=== PATIENT | male | born 2000 | race Hispanic/Latino ===

== ENCOUNTER 2022-06-27 08:52 | Emergency (ER) | payer OTHER ==
[2022-06-27] MEDS ORDERED: Acetaminophen 500 MG TAB ONE (09:23)
[2022-06-27 09:56] LABS: SARS-CoV-2 NAA Rapid Test Not Detected (NotDetected)
== END 2022-06-27 10:47 | disposition home or self-care (01) ==
LOC: ERS 08:52
DX: J11.1 Influenza due to unidentified influenza virus with other respiratory manifestations (principal); F17.210 Nicotine dependence, cigarettes, uncomplicated; Z20.822 Contact with and (suspected) exposure to COVID-19
CPT/HCPCS: 99283

== ENCOUNTER 2023-11-11 01:03 | Inpatient (IN) | payer OTHER ==
[2023-11-11 01:42] LABS: #Eosinphils 0.2 thou/uL (0.0-0.7); #Monocytes 0.5 thou/uL (0.11-0.59); #Neutrophils 2.7 thou/uL (1.40-6.50); %Basophils 0.2 % (0.0-1.0); %Lymphocytes 36.1 % (21.0-51.0); %Monocytes 9.9 % (0.0-10.0); %Neutrophils 50.2 % (42.0-75.0); Hematocrit 38.1 % (42.0-52.0); Hemoglobin 12.7 g/dL (14.0-18.0); Mean Corpuscular HGB CONC 33.3 g/dL (32.0-36.0); Mean Corpuscular Hemoglobin 29.3 pg (27.0-31.0); Mean Corpuscular Volume 87.8 fl (78.0-98.0); Mean Platelet Volume 9.7 fL (7.4-10.4); Platelet Count 228 10x3/uL (130-400); RBC Distribution Width 12.3 % (11.5-14.5); Red Blood Cell (RBC) Count 4.34 mill/uL (4.70-6.10); White Blood Cell (WBC) Count 5.4 10x3/uL (4.8-10.8)
[2023-11-11 02:03] LABS: ALT (SGPT) 28 U/L (8-55); AST (SGOT) 30 U/L (5-34); Acetaminophen Less than 10 mcg/mL (10.0-30.0); Albumin 3.2 g/dL (3.5-5.0); Alcohol Less than 10.0 mg/dL (Less than 10); Alkaline Phosphatase 59 U/L (40-110); Anion Gap 11 mmol/L (10-20); BUN (Urea Nitrogen) 25 mg/dL (8.9-20.6); Bilirubin, Total 0.2 mg/dL (0.2-1.2); Calc. Creatinine Clearance 0 mL/min (70-130); Carbon Dioxide 22 mmol/L (22-29); Chloride 109 mmol/L (98-107); Estimated GFR 93; Globulin 1.8 g/dL (2.4-3.5); Glucose 100 mg/dL (70-105); Potassium 3.7 mmol/L (3.5-5.1); Salicylate Less than 8.0 mg/dL (15.0-30.0); Sodium 138 mmol/L (136-145)
[2023-11-11] MEDS ORDERED: Magnesium 2 GM/50 ML BAG (IN WATER) ONE (03:31)
[2023-11-11] MEDS ORDERED: NS 0.9% w/ 20 MEQ KCL 1,000 ML ONE (04:02)
[2023-11-11] MEDS ORDERED: Ondansetron PF 4 MG/2 ML Vial IVP PRN (04:45)
[2023-11-11] MEDS ORDERED: Ondansetron ODT 4 MG TAB PO PRN (04:45)
[2023-11-11] MEDS ORDERED: Acetaminophen 650 MG Suppository PR PRN (04:45)
[2023-11-11 05:13] LABS: Amphetamine Not Detected (NotDetected); Barbiturates Screen Not Detected (NotDetected); Benzodiazepine Screen Not Detected (NotDetected); Cocaine Metabolite Screen Not Detected (NotDetected); Methadone Not Detected (NotDetected); Methamphetamine Not Detected (NotDetected); Opiate Screen Not Detected (NotDetected); Oxycodone Screen Not Detected (NotDetected); Phencyclidine (PCP) Not Detected (NotDetected); THC/Cannabinoid Screen Not Detected (NotDetected); Tricyclic Screen Not Detected (NotDetected)
[2023-11-11 05:24] VITALS: BMI 32.6
[2023-11-11] MEDS: Lactated Ringer's 1,000 ML IV SCH ×2 (06:30→12:30)
[2023-11-11] MEDS: Acetaminophen 325 MG TAB PO PRN (13:20)
[2023-11-12] MEDS: Acetaminophen 325 MG TAB PO PRN (05:19)
[2023-11-12 05:26] LABS: #Eosinphils 0.1 thou/uL (0.0-0.7); #Monocytes 0.5 thou/uL (0.11-0.59); %Basophils 0.3 % (0.0-1.0); %Eosinophils 1.7 % (0.0-10.0); %Lymphocytes 36.3 % (21.0-51.0); %Monocytes 6.5 % (0.0-10.0); %Neutrophils 55.1 % (42.0-75.0); Hematocrit 41.7 % (42.0-52.0); Hemoglobin 13.7 g/dL (14.0-18.0); Mean Corpuscular HGB CONC 32.9 g/dL (32.0-36.0); Mean Corpuscular Volume 88.2 fl (78.0-98.0); Mean Platelet Volume 9.8 fL (7.4-10.4); Platelet Count 232 10x3/uL (130-400); RBC Distribution Width 12.8 % (11.5-14.5); Red Blood Cell (RBC) Count 4.73 mill/uL (4.70-6.10); White Blood Cell (WBC) Count 7.2 10x3/uL (4.8-10.8)
[2023-11-12 06:26] LABS: Anion Gap 13 mmol/L (10-20); BUN (Urea Nitrogen) 11 mg/dL (8.9-20.6); Calc. Creatinine Clearance 114 mL/min (70-130); Calcium 8.8 mg/dL (7.8-10.44); Carbon Dioxide 24 mmol/L (22-29); Chloride 106 mmol/L (98-107); Estimated GFR 81; Glucose 123 mg/dL (70-105); Potassium 3.6 mmol/L (3.5-5.1); Sodium 139 mmol/L (136-145)
[2023-11-12 16:11] VITALS: BP 124/56; TEMP 98.8
== END 2023-11-12 16:56 | disposition home or self-care (01) | DRG 918 ==
LOC: ERS 01:03 → IMCU/EMU 03:51 → T4-B 22:32
PROVIDERS: ADMIT Student in an Organized Health Care Education/Training Program; ATTEND Family Medicine
DX: T43.212A Poisoning by selective serotonin and norepinephrine reuptake inhibitors, intentional self-harm, initial encounter (principal); F32.A Depression, unspecified; D64.9 Anemia, unspecified; Z79.899 Other long term (current) drug therapy; I95.9 Hypotension, unspecified; I45.81 Long QT syndrome; F41.9 Anxiety disorder, unspecified
CPT/HCPCS: 36415; 36416; 80048; 80053; 80306; 80307; 83735; 85025; 93005; 93010; 94760; 96361; 96365; J3475; J3480; J7120